=== PATIENT | female | born 1985 | race Caucasian/White ===

== ENCOUNTER 2020-06-24 13:11 | Emergency (ER) | payer BC, SELFPAY ==
[2020-06-24 14:01] VITALS: BP 121/85; PULSE 63; RESP 20; O2SAT 100; BMI 22.8
--- NOTE | 2020-06-24 14:08 | HMH.EDUTC ---
[facility] [place] Disposition Clinical Impression: Migraine headache Qualifiers: Migraine type: unspecified Status migrainosus presence: without status migrainosus Intractability: not intractable Qualified Code(s): G43.909 - Migraine, unspecified, not intractable, without status migrainosus Disposition: Home, Self-Care Condition on Discharge: Good Instructions: Migraine -- Adult, DI for Migraine Additional Instructions: Drink plenty of fluids. Take tylenol or ibuprofen for pain or fever. Take the medications as directed. Follow up with your regular doctor. GO TO THE ER FOR ANY WORSENING SYMPTOMS Prescriptions: Ondansetron [Zofran 4mg ODT] 4 mg PO Q8HP PRN #20 tab.rapdis PRN Reason: Nausea Transmission Status: Received by [id number] SUMAtriptan succinate [Imitrex 25mg Tablet] 25 mg PO DAILYP PRN #30 tab PRN Reason: Headache Transmission Status: Received by [id number] Referrals: Kaz Wick MD [Primary Care Provider] - Forms: Work/School Release Time of Disposition: 14:15 Medical Decision Making - Medical Records Medical records reviewed: No: I reviewed the patient's medical records. - Tim Inquiry Pt receiving controlled substance: No Vital Signs: 06/24/20 14:01 06/24/20 14:23 Temperature 98 F Pulse Rate 63 Pulse Rate [Right Brachial] 63 Respiratory Rate 20 20 Blood Pressure 121/85 Blood Pressure [Left Arm] 121/85 Blood Pressure Mean [Left Arm] 97 Blood Pressure Source [Left Arm] Automatic Cuff Blood Pressure Position [Left Arm] Sitting 02 Sat by Pulse Oximetry 100 Oxygen Delivery Method Room Air [facility] [place] HPI - General Stated complaint: see if ok to return to work Time Seen by Provider: 06/24/20 14:08 Mode of Arrival: Ambulatory Source of Information: Patient Limitations: No Limitations Description of Symptoms (Recalled from Triage Doc. by RN): PATIENT HAD AN OCCULAR MIGRAINE AT WORK ON WEDNESDAY AND WAS SENT HOME. SHE IS NEEDING A NOTE TO RETURN TO WORK. PATIENT DENIES SYMPTOMS AT THIS TIME HEENT Symptoms (Recalled from RN notes): No Resp Symptoms (Recalled from RN notes): No Skin Symptoms (Recalled from RN notes): No MS Symptoms (Recalled from RN notes): No Functional Status (Recalled from RN notes): WNL - History of Present Illness Provider Complaint: She states that on Wednesday (3 days ago) she had a migraine headache and had to go home from work. She needs a release to go back to work. She has a history of migraines. - Related Data Previous Rx's Medication Instructions Recorded Ondansetron [Zofran 4mg ODT] 4 mg PO Q8HP PRN #20 tab.rapdis 06/24/20 SUMAtriptan succinate [Imitrex 25 mg PO DAILYP PRN #30 tab 06/24/20 25mg Tablet] Allergies Allergy/AdvReac Type Severity Reaction Status Date / Time No Known Allergies Allergy Unverified 10/05/17 14:57 - Worker's Comp Is this a Worker's Comp case?: No [facility] History - Hepatitis A Screen Drug use history?: No High risk sexual behaviors?: No History of sexually transmitted infection?: No Currently employed?: No Childcare worker?: No Do you have indoor plumbing?: Yes Do you have electricity?: Yes Attestation statement:: This patient has been screened for Hepatitis A risk factors. I have reviewed the patient's past medical history: Yes Laterality Cases: Bilateral: Tonsillectomy - Social History Alcohol Intake: never Occupational Status: other ROS Obtained: Yes All systems reviewed & no additional complaints - Constitutional Constitutional: Denies chills, Denies fatigue, Denies fever(s) - Eyes Eyes: Denies blurry vision, Denies change in vision, Denies eye discharge - ENT Ears, Nose, Mouth, and Throat: Denies dizziness, Denies otalgia, Denies sore throat - Cardiovascular Cardiovascular: Denies chest pain - Respiratory Respiratory: No chest congestion, No cough Physical Exam - General General appearance: alert, in no apparent distress - Head Head exa
[2020-06-24 14:23] VITALS: BP 121/85; PULSE 63; RESP 20; TEMP 36.6; O2SAT 100
== END 2020-06-24 14:24 | disposition home or self-care (01) ==
PROVIDERS: Emergency Provider Nurse Practitioner Family; PCP Emergency Medicine
DX: Z02.89 Encounter for other administrative examinations (principal); G43.909 Migraine, unspecified, not intractable, without status migrainosus
CPT/HCPCS: 99201

== ENCOUNTER → 2021-01-08 12:51 | Outpatient (CLI) | payer OTHER, SELFPAY | PROVIDERS: PCP Physician Assistant; Visit Provider Nurse Practitioner Family | DX: Z20.822 Contact with and (suspected) exposure to COVID-19 (principal) | CPT/HCPCS: U0003 ==

== ENCOUNTER 2021-06-12 09:30 | Emergency (ER) | payer OTHER, SELFPAY ==
[2021-06-12 10:53] VITALS: BP 125/79; PULSE 77; RESP 18; TEMP 36.8; O2SAT 99; BMI 21.9
--- NOTE | 2021-06-12 11:08 | HMH.EDUTC ---
[facility] [place] Disposition Clinical Impression: Migraine headache Qualifiers: Migraine type: unspecified Status migrainosus presence: without status migrainosus Intractability: not intractable Qualified Code(s): G43.909 - Migraine, unspecified, not intractable, without status migrainosus Disposition: Home, Self-Care Condition on Discharge: Good Instructions: Migraine -- Adult, DI for Migraine Additional Instructions: Go home take one benadryl and lay down and try to sleep off remainder of migraine headache Follow up with your Family Doctor if your migraines continue Straight to ER for worse Migraine headache of your life Return if needed Referrals: Elizabeth Mayes PA [Primary Care Provider] - As needed Forms: Work/School Release Medical Decision Making - Tim Inquiry Pt receiving controlled substance: No Tim was queried for this patient: No Vital Signs: 06/12/21 10:53 Temperature 98.2 F Temperature Source Oral Pulse Rate [Right] 77 Respiratory Rate 18 Blood Pressure [Right Arm] 125/79 Blood Pressure Mean [Right Arm] 94 02 Sat by Pulse Oximetry 99 Oxygen Delivery Method Room Air Orders (Tests/Meds): ED MEDICATIONS Discontinued Medications Generic Name Dose Route Start Last Admin Trade Name Joshua PRN Reason Stop Dose Admin Ketorolac Tromethamine 60 mg 06/12/21 11:16 06/12/21 11:21 Ketorolac 60mg/2ml Vial IM 06/12/21 11:17 60 mg ONCE ONE Administration Ondansetron HCl 4 mg 06/12/21 11:16 06/12/21 11:21 Ondansetron 4mg/2ml Vial IM 06/12/21 11:17 4 mg ONCE ONE Administration Medical Decision Narrative: Patient report that Migraine headache is now almost gone Patient was unable to receive the benadryl due to no taxi driver but state that she will go home take it and lay down to sleep off remainder of headache [facility] [place] HPI - General Stated complaint: HEADACHE Time Seen by Provider: 06/12/21 11:08 Mode of Arrival: Family Vehicle Source of Information: Patient Limitations: No Limitations Description of Symptoms (Recalled from Triage Doc. by RN): Patient c/o a mingraine intermittently since 06/09/21. Patient reports hx of migraines. Patient denies photophobia, unilateral weakness and N/V. HEENT Symptoms (Recalled from RN notes): Yes (MIGRAINE) Resp Symptoms (Recalled from RN notes): No Skin Symptoms (Recalled from RN notes): No MS Symptoms (Recalled from RN notes): No Functional Status (Recalled from RN notes): NA - History of Present Illness Provider Complaint: Patient states that she has a history of migraine headaches State that she started with Migraine on Wednesday and has been trying to get it cleared up and she will get some relief and then it will return State that she has had to come in before and get Toradol and benadryl to help clear it up but today she didnt have taxi driver so she wanted to see if she could get Toradol shot and something for the nausea and she will take the benadryl at home - Related Data Previous Rx's Medication Instructions Recorded SUMAtriptan succinate [Imitrex 25 mg PO DAILYP PRN #30 tab 06/24/20 25mg Tablet] Allergies Allergy/AdvReac Type Severity Reaction Status Date / Time No Known Allergies Allergy Verified 05/22/21 14:59 - Worker's Comp Is this a Worker's Comp case?: No Is this an H Worker's Comp?: No Is this a [place] Worker's Comp?: No H History - Hepatitis A Screen Drug use history?: No High risk sexual behaviors?: No History of sexually transmitted infection?: No Currently employed?: No Childcare worker?: No Do you have indoor plumbing?: Yes Do you have electricity?: Yes Attestation statement:: This patient has been screened for Hepatitis A risk factors. I have reviewed the patient's past medical history: Yes Medical History: Reports:: Migraine Laterality Cases: Bilateral: Tonsillectomy Other Surgeries: Yes: , Tubal Ligation Amputation: No Fractures: No - Social History Smoking Status: Current ev
[2021-06-12 11:40] VITALS: BP 122/75; PULSE 78; RESP 18; TEMP 36.9; O2SAT 98
== END 2021-06-12 11:42 | disposition home or self-care (01) ==
PROVIDERS: Emergency Provider Nurse Practitioner; PCP Physician Assistant
DX: G43.909 Migraine, unspecified, not intractable, without status migrainosus (principal)
CPT/HCPCS: 99202; G0463; J2405

== ENCOUNTER → 2021-07-17 12:06 | Outpatient (CLI) | payer OTHER, SELFPAY | PROVIDERS: PCP Emergency Medicine; Visit Provider Nurse Practitioner | DX: Z20.822 Contact with and (suspected) exposure to COVID-19 (principal) | CPT/HCPCS: C9803; U0003; U0005 ==

== ENCOUNTER → 2021-11-11 17:35 | Outpatient (CLI) | payer OTHER, SELFPAY | PROVIDERS: Visit Provider Nurse Practitioner | DX: U07.1 COVID-19 (principal) | CPT/HCPCS: C9803; U0003; U0005 ==

== ENCOUNTER 2022-02-14 20:15 | Emergency (ER) | payer OTHER, SELFPAY ==
--- NOTE | 2022-02-14 20:20 | XR_ITS ---
PROCEDURE INFORMATION: Exam: XR Right Wrist Exam date and time: 02/14/2022 8:17 PM Age: 36 years old Clinical indication: Wrist; Right; Patient HX: Pain after a fall skating TECHNIQUE: Imaging protocol: XR Right wrist. Views: 3 or more views. COMPARISON: No relevant prior studies available. FINDINGS: Bones/joints: Mildly displaced and mildly posteriorly angulated distal radial metaphyseal fracture. There may be intra-articular component in the radiocarpal joint. Subtle ulnar styloid process irregularity could be a nondisplaced avulsion fracture. Soft tissues: Normal. IMPRESSION: 1. Mildly displaced and mildly posteriorly angulated distal radial metaphyseal fracture. There may be intra-articular component in the radiocarpal joint. 2. Subtle ulnar styloid process irregularity could be a nondisplaced avulsion fracture.
[2022-02-14 20:25] VITALS: BP 131/87; PULSE 92; RESP 18; TEMP 37.1; O2SAT 100; BMI 21.9
--- NOTE | 2022-02-14 20:37 | PC.NURSE ---
ICE PACK PLACED ON WRIST
--- NOTE | 2022-02-14 20:43 | HMH.EDUTC ---
[facility] [place] Impression: Distal radial fracture Qualifiers: Encounter type: initial encounter Fracture type: closed Fracture morphology: unspecified fracture morphology Laterality: right Qualified Code(s): S52.501A - Unspecified fracture of the lower end of right radius, initial encounter for closed fracture Disposition: Home, Self-Care Condition on Discharge: Good Instructions: DI for Wrist Fracture, Wrist Fracture, Ketorolac Additional Instructions: *RICE, Rest the extremity, Ice 15-20 minutes 3-4 times daily, Compress- wear the dalton wrap as discussed as much as possible to help reduce swelling and pain, Elevate the extremity when at rest *Orthoglass splint is for support and help control swelling, Be sure that is not to tight but not to loose either *Elevate when resting *Take medication as prescribed If need something more can take Tylenol in between doses to help Immediately follow up with your family doctor for new or worsening of symptoms, or no noticeable improvement over the next 3-5 days Call Orthopedic office on Wednesday for appointment with Dr Paulino Return if needed Straight to ER if any life threatening symptoms Prescriptions: Ketorolac Tromethamine [Toradol 10mg tablet] 10 mg PO Q6HP PRN #20 tab MDD 40mg/day PRN Reason: Moderate Pain Transmission Status: Pending to [id number] Referrals: Kaz Wick MD [Primary Care Provider] - As needed Parker Paulino MD [Staff Physician] - As needed (Call office on Wednesday for appointment) Forms: Work/School Release Time of Disposition: 21:05 Medical Decision Making - Tim Inquiry Pt receiving controlled substance: No Tim was queried for this patient: No Vital Signs: 02/14/22 20:25 02/14/22 20:49 Temperature 98.7 F 98.7 F Temperature Source Oral Pulse Rate 92 H Pulse Rate [Right Brachial] 92 H Respiratory Rate 18 18 Blood Pressure 131/87 Blood Pressure [Right Arm] 131/87 Blood Pressure Mean [Right Arm] 101 Blood Pressure Source [Right Arm] Automatic Cuff Blood Pressure Position [Right Arm] Sitting 02 Sat by Pulse Oximetry 100 Oxygen Delivery Method Room Air Orders (Tests/Meds): ED MEDICATIONS Discontinued Medications Generic Name Dose Route Start Last Admin Trade Name Freq PRN Reason Stop Dose Admin Ketorolac Tromethamine 60 mg 02/14/22 20:44 02/14/22 20:49 Ketorolac 60mg/2ml Vial IM 02/14/22 20:45 60 mg ONCE ONE Administration ORDERS Category Date Time Status XR wrist RT min 3V Stat Exams 02/14/22 20:20 Taken - Radiology Data #1 Image(s): Wrist Image Reviewed: Yes I reviewed the patient's radiology image distal radial fracture - Physician Consults Physician Consulted: Dr Paulino Time: 20:45 Reason -: Orthopedic Eval/Care Comment/Response: Spoke with Dr Paulino and he viewed the xray and agreed Advised place in short arm splint, rice and call the office on Wednesday for appointment [facility] [place] - General Stated complaint: AO fall 1999 Right wrist pain Time Seen by Provider: 02/14/22 20:44 Mode of Arrival: Ambulatory Source of Information: Patient Limitations: No Limitations Description of Symptoms (Recalled from Triage Doc. 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 HEENT Symptoms (Recalled from RN notes): No Resp Symptoms (Recalled from RN notes): No Skin Symptoms (Recalled from RN notes): No MS Symptoms (Recalled from RN notes): Yes Functional Status (Recalled from RN notes): WNL - History of Present Illness Provider Complaint: Patient state that she was skating and her child went to fall and she tried to catch them and she fell and stuck her hand out to catch herself and she fell and felt a pop State that she looked down and noticed her wrist and had family bring her in - Related Data Previous Rx's Medication Instructions Recorded SUMAtriptan succinate [Imitrex 25 mg PO DAILYP PRN #30 tab 06/24/20 25mg Tablet] Ketorol
[2022-02-14 20:49] VITALS: BP 131/87; PULSE 92; RESP 18; TEMP 37.1; O2SAT 100
== END 2022-02-14 21:09 | disposition home or self-care (01) ==
PROVIDERS: Emergency Provider Nurse Practitioner; PCP Emergency Medicine
DX: S52.501A Unspecified fracture of the lower end of right radius, initial encounter for closed fracture (principal); W18.30XA Fall on same level, unspecified, initial encounter; Y93.51 Activity, roller skating (inline) and skateboarding; Z72.0 Tobacco use
CPT/HCPCS: 73110; 96372; 99283

== ENCOUNTER → 2022-02-16 13:45 | Outpatient (CLI) | payer OTHER, SELFPAY ==
--- NOTE | 2022-02-16 13:51 | XR_ITS ---
FINAL REPORT CLINICAL HISTORY: rt elbow pain FINDINGS: RIGHT ELBOW 3 views were obtained. There is no acute fracture or dislocation. There is no joint effusion. The joint spaces are intact. There is no soft tissue abnormality. IMPRESSION: No acute process. Reviewed, Interpreted and Dictated by Sen Fenton III, MD Transcribed by Hang Muñoz Authenticated by Sen Fenton III, MD on 02/16/2022 02:41:41 PM [facility]
--- NOTE | 2022-02-16 15:30 | XR_ITS ---
FINAL REPORT CLINICAL HISTORY: pre op, no chest symptoms at this time. Unable to removed nipple piercings due to forearm fx. COMPARISON: April 29, 2016 FINDINGS: Two views of the chest were obtained. The heart size and pulmonary vascularity are within normal limits. The mediastinum is normal. No acute pulmonary abnormality is identified. There is no pneumothorax. The bony thorax is intact. IMPRESSION: No active cardiopulmonary disease. Reviewed, Interpreted and Dictated by Sen Fenton III, MD Transcribed by Hang Muñoz Authenticated by Sen Fenton III, MD on 02/16/2022 05:00:55 PM [facility]
[2022-02-16 16:58] LABS: Urine Pregnancy, HCG Qual. Negative (Negative)
[2022-02-16 17:19] LABS: Alanine Aminotransferase 22 U/L (12-78); Albumin/Globulin Ratio 1.8 (1.1-1.8); Alkaline Phosphatase 67 U/L (38-126); Anion Gap 10.9 mEq/L (5-15); Aspartate Amino Transferase 30 U/L (14-36); Bilirubin,Total 0.5 mg/dl (0.2-1.3); Blood Urea Nitrogen 13 mg/dl (7-17); Carbon Dioxide 27 mmol/L (22.0-30.0); Chloride 102 mmol/L (98-107); Estimated Glomerular Filt Rate 96 ml/min (>60); GFR (African American) 116 ML/MIN (>60); Globulin 2.2 g/dL (1.3-3.2); Glucose 74 mg/dl (74-100); Potassium 3.9 mmoL/L (3.5-5.1); Sodium 136 mmol/L (136-145); Total Protein,Serum 6.2 g/dl (6.3-8.2)
[2022-02-16 18:04] LABS: Basophils # 0.1 K/mm3 (0-0.2); Basophils % 0.8 % (0.1-2.0); Eosinophils # 0.1 K/mm3 (0.0-0.4); Eosinophils % 1.2 % (0.1-12.0); Hematocrit 38.7 % (37.0-47.0); Hemoglobin 13.2 g/dL (12.2-16.2); Lymphocytes % 30.3 % (10-50); Mean Corpuscular HGB Conc 34.1 g/dL (31.8-35.4); Mean Corpuscular Hemoglobin 31.8 pg (27.0-31.2); Mean Corpuscular Volume 93.2 fl (81-99); Mean Platelet Volume 9.2 fl (7.4-10.4); Monocytes # 0.6 K/mm3 (0.1-1.0); Monocytes % 5.8 % (1.7-9.3); Neutrophils # 6.1 K/mm3 (1.8-7.8); Neutrophils % 61.9 % (37.0-80.0); Platelet Count 405 K/mm3 (142-424); Red Blood Count 4.15 M/mm3 (4.20-5.40); Red Cell Distribution Width 12.6 % (11.5-17.5); White Blood Count 9.9 K/mm3 (4.8-10.8)
== END ==
PROVIDERS: PCP Emergency Medicine; Visit Provider Orthopaedic Surgery
DX: Z01.812 Encounter for preprocedural laboratory examination (principal); Z11.52 Encounter for screening for COVID-19; M25.521 Pain in right elbow; S52.501A Unspecified fracture of the lower end of right radius, initial encounter for closed fracture
CPT/HCPCS: 71046; 73080; 80053; 81025; 85025; C9803; U0003; U0005

== ENCOUNTER 2022-02-18 06:07 | Day surgery (SDC) | payer OTHER, SELFPAY ==
[2022-02-17 11:25] VITALS: BMI 21.9
[2022-02-18] VITALS (12 sets, daily range): BP systolic 110–125; BP diastolic 68–79; PULSE 70–117; RESP 13–18; TEMP 36.7–43; O2SAT 95–99
--- NOTE | 2022-02-18 07:08 | P.PN_ITS ---
[facility] Anesthesia Checklist - Structural Data Admitted From: Home Planned Operative Procedure/s: orif r radius Consent for Planned Operative Procedure(s) Verified: Yes - Additional verifications Anesthesia Reactions: No Hx Blood Transfusions: No Blood Transfusion Reaction: No - Airway Assessment C-Spine Mobility Assessed: Yes TMJ Mobility Assessed: Yes Dentition: Good Dentition - Neurological Assessment Level of Consciousness: Awake, Alert, Appropriate - Anesthesia Plan Anesthesia Risk discussed: Yes Anesthesia Plan: Verified ASA Class: II Anesthesia Type: General [facility] History I have reviewed the patient's past medical history: Yes Medical History: Reports:: Migraine Denies:: Cancer, Diabetes Mellitus Type 1, Diabetes Mellitus Type 2, Internal Pacemaker, MRSA, Seizures *Have you ever received a pneumonia vaccine?: No *Have you received a flu vaccine this season?: No Other Medical History: Denies: Blood Transfusion Reaction Anesthesia experience/problems:: none Laterality Cases: Bilateral: Tonsillectomy Other Surgeries: Yes: , Tubal Ligation. No: Pacemaker Amputation: No Fractures: No - *Social History Last grade of school completed: Some college Smoking Status: Current every day smoker Tobacco Type: e-cigarettes # Packs/Day (cigarettes): 1 Alcohol Intake: current Alcohol Intake Frequency:: holidays/special occasions only Substance Use Type: denies use *Occupational Status:: employed Housing: house Household Members: family, children *Travel in the last 8 weeks: None Family Hx:: Non-contributory, Cancer, Diabetes, Heart Attack, Hypertension, Asthma
--- NOTE | 2022-02-18 09:14 | XR_ITS ---
FINAL REPORT CLINICAL HISTORY: ORIF RT WRIST. DAVID .37 fluoro time COMPARISON: Plain film dated February 14, 2022 FINDINGS: Fluoroscopic guidance was provided for the operating services. Two spot films were provided. 37 seconds of fluoroscopy time was utilized. There has been interval ORIF of the distal radius with screw plate and multiple screws. IMPRESSION: 37 seconds of fluoroscopy time. Reviewed, Interpreted and Dictated by Sen Fenton III, MD Transcribed by Hang Muñoz Authenticated by Sen eFnton III, MD on 02/18/2022 10:34:17 AM [facility]
--- NOTE | 2022-02-18 09:57 | HMH.ANESI ---
[facility] Anesthesia Record Part I Intake, IV Amount: 700 Estimated blood loss (mL): 10 Urine output (mL): 0 Blood Products used (#): none Blood Pressure: 125/77 SaO2: 95 Pulse Rate: 117 Respiratory Rate: 13 Temperature: 98.9 F Patient is:: Drowsy Stable to PACU at:: 09:56
--- NOTE | 2022-02-18 10:34 | HMH.OPNOTE ---
Date of procedure: 02/18/22 Pre-op Diagnosis:: Closed, displaced distal radius fracture, right wrist Post-op Diagnosis:: Same Procedure performed:: Open reduction and internal fixation, right distal radius fracture Surgeon:: Parker Paulino MD Boring Mill Set Up Operator(s):: Abigail Almazan PA-C SPOOLING SUPERVISOR:: Other (Heriberto Mcdonough) Anesthesia: LMA Estimated blood loss (mL): 5 Clinical Note:: Patient is a 36-year-old right-hand dominant female who sustained a closed, displaced fracture of the right distal radius following a mechanical fall over the weekend. Evaluation including x-rays of the wrist showed a closed, displaced fracture of the distal radius. There was apex volar angulation at the fracture site with shortening of the radius, loss of radial inclination and dorsal tilt of the distal fracture fragment. Following evaluation in the office and discussion with the patient about the management options, including both nonsurgical and surgical, patient elected to proceed with surgical remediation. Please refer to my office note for full details. Operative findings:: Displaced, unstable fracture of the right distal radius as noted on the preoperative x-rays. Bone quality is good. Operative note:: After appropriate workup, the patient is brought to the hospital for surgery. On the day of surgery, I met the patient in the preoperative area and again discussed the details of the procedure, risks, benefits, alternatives, and the expected outcomes. The complications discussed include but are not limited to infection, bleeding, injury to nerves, tendons and blood vessels, incisional scar (cosmesis), DVT/PE, malunion, nonunion/delayed union, loss of position, re-fracture, wrist/finger stiffness, CRPS (complex regional pain syndrome- pain, sensory and temperature changes, swelling and stiffness), painful/prominent hardware, loss of fixation/hardware failure, incomplete relief of pain, incomplete return of function, posttraumatic arthritis and likely need for further surgery in future and also the risks of anesthesia including heart attack, stroke, and . I have also explained how additional surgery may be required if there are any complications or the fracture fails to heal. We have also discussed the postoperative pain management, recovery and rehabilitation, immobilization required, the likely need for physical therapy, the possibility of stiffness, chronic pain and we've also discussed the option of nonsurgical treatment. Patient expressed a full understanding and wished to proceed with surgery as planned. The operative site/side was marked and initialed by me. Patient understood the risks, agreed to proceed with surgery and no guarantees or assurances were given or implied. Patient was brought to the operating room and placed supine on the table. The right upper extremity was placed over an arm table. All the bony prominences were well padded. A general anesthesia was administered by the land conservation specialist. A well-padded tourniquet cuff was applied over the upper arm. The right upper extremity was prepped and draped in the usual sterile fashion. A preprocedure timeout was performed as per hospital protocol. Administration of prophylactic IV antibiotics (2 g of IV Ancef) was confirmed prior to starting the procedure. The skin incision was marked over the distal forearm anteriorly for the extended FCR volar approach to distal radius. Limb was exsanguinated with Esmarch bandage and tourniquet was inflated to 250 mmHg. Please see the nursing notes for the total tourniquet time. Skin incision was made over the distal radius for an extended FCR anterior approach. The incision was deepened through the subcutaneous tissue and the FCR tendon was identified. The FCR sheath was opened, and the tendon retracted medially. The deeper dissection was carried through the bed of the FCR tendon to expose the FPL muscle and tendon which were retracted medially. The pronator quadratus was released in an L-shap
--- NOTE | 2022-02-19 07:46 | P.PN_ITS ---
[facility] Anesthesia Record Part II Discharge Time: 10:46 Destination: Home PACU nurse assessment reviewed?: Yes Patient Condition:: Good Anesthesia Complications:: None Swallowing reflex intact?: Yes Cyanosis?: No Blood Pressure: 117/78 Pulse Rate: 99 Temperature: 98.9 F Mental Status: Alert & Oriented Pain level:: 0 Nausea and/or vomitting:: None Intake, IV Amount: 0
[2022-02-19 07:47] VITALS: BP 117/78; PULSE 99; TEMP 37.2
== END 2022-02-18 11:17 | disposition home or self-care (01) ==
LOC: OR 06:08
PROVIDERS: PCP Emergency Medicine; Visit Provider Orthopaedic Surgery
PROC: (CPT 25608; principal; 2022-02-18 07:30)
DX: S52.571A Other intraarticular fracture of lower end of right radius, initial encounter for closed fracture (principal); W01.0XXA Fall on same level from slipping, tripping and stumbling without subsequent striking against object, initial encounter; Y93.51 Activity, roller skating (inline) and skateboarding
CPT/HCPCS: 25608; 73100; 76000; 96374; C1713; C1769; C1776; J2405

== ENCOUNTER → 2022-02-25 10:05 | Outpatient (CLI) | payer BC, SELFPAY ==
--- NOTE | 2022-02-25 10:12 | XR_ITS ---
FINAL REPORT CLINICAL HISTORY: ORIF rt wrist COMPARISON: February 14, 2022 FINDINGS: 3 views of the right wrist were obtained. Overlying cast material obscures detail. There has been interval postoperative change with sideplate and multiple screws. There is a fracture of the tip of the ulnar styloid process. IMPRESSION: Interval postoperative changes of ORIF. Fracture of the tip of the ulnar styloid process. Reviewed, Interpreted and Dictated by Sen Fenton III, MD Transcribed by Hang Muñoz Authenticated by Sen Fenton III, MD on 02/25/2022 11:15:48 AM [facility]
== END ==
PROVIDERS: PCP Emergency Medicine; Visit Provider Orthopaedic Surgery
DX: S52.501A Unspecified fracture of the lower end of right radius, initial encounter for closed fracture (principal)
CPT/HCPCS: 73110

== ENCOUNTER → 2022-03-17 09:13 | Outpatient (CLI) | payer BC, SELFPAY ==
--- NOTE | 2022-03-17 09:17 | XR_ITS ---
FINAL REPORT CLINICAL HISTORY: ORIF rt wrist, cast removal COMPARISON: February 25, 2022 FINDINGS: 3 views of the right wrist were obtained. There has been interval removal of a cast. There is a distal radius fracture with ORIF. There is a presumed fracture tip of of the ulnar styloid process. There are mild degenerative changes. IMPRESSION: Fractures as above with changes of ORIF. Reviewed, Interpreted and Dictated by Sen Fenton III, MD Transcribed by Hang Muñoz Authenticated by Sen Fenton III, MD on 03/17/2022 10:37:53 AM [facility]
== END ==
PROVIDERS: PCP Emergency Medicine; Visit Provider Orthopaedic Surgery
DX: S52.501A Unspecified fracture of the lower end of right radius, initial encounter for closed fracture (principal)
CPT/HCPCS: 73110

== ENCOUNTER 2022-03-17 10:27 | Outpatient (RCR) | payer BC, SELFPAY | END 2022-03-17 11:30 | disposition home or self-care (01) | LOC: OT 10:27 | PROVIDERS: Visit Provider Orthopaedic Surgery | DX: S52.501D Unspecified fracture of the lower end of right radius, subsequent encounter for closed fracture with routine healing (principal) | CPT/HCPCS: 97760 ==

== ENCOUNTER → 2022-04-07 08:52 | Outpatient (CLI) | payer BC, SELFPAY ==
--- NOTE | 2022-04-07 08:54 | XR_ITS ---
FINAL REPORT CLINICAL HISTORY: s/p ORIF 02/20/2022 COMPARISON: March 17, 2022 FINDINGS: RIGHT WRIST Three views were obtained. Again noted are fractures of the distal radius and tip of the ulnar-styloid process. Postoperative changes are seen from ORIF with screw plate and screws at the distal radius. The bony alignment is stable. There is evidence of interval healing of the distal radial fracture fragments. There is no new bony abnormality seen. The visualized joint spaces are normally aligned. The soft tissues are unremarkable. IMPRESSION: Interval healing of distal radial fracture status post ORIF with no new acute bony abnormality. Reviewed, Interpreted and Dictated by Sen Fenton III, MD Transcribed by Maine Spencer Authenticated and [facility]
--- NOTE | 2022-04-07 11:11 | XR_ITS ---
FINAL REPORT CLINICAL HISTORY: shoulder pain FINDINGS: RIGHT SHOULDER Three views demonstrate no acute fracture or dislocation. The joint spaces appear normal. The visualized bony structures are well aligned. No soft tissue abnormality is seen. IMPRESSION: No acute process. Reviewed, Interpreted and Dictated by Sen Fenton III, MD Transcribed by Perlita Parikh Authenticated and [facility]
== END ==
PROVIDERS: PCP Emergency Medicine; Visit Provider Orthopaedic Surgery
DX: Z09 Encounter for follow-up examination after completed treatment for conditions other than malignant neoplasm (principal); M25.511 Pain in right shoulder; S52.501D Unspecified fracture of the lower end of right radius, subsequent encounter for closed fracture with routine healing
CPT/HCPCS: 73030; 73110

== ENCOUNTER 2022-04-21 15:00 | Outpatient (RCR) | payer BC, SELFPAY ==
--- NOTE | 2022-03-23 14:43 | HMH.OTOPEV ---
OT Inpatient Evaluation Rehab OT Outpatient Eval Start: 03/23/22 14:30 Freq: Status: Active Protocol: Document 03/23/22 14:31 RMJANELL (Rec: 03/23/22 14:43 [id number] Electronically Signed By Jannet Staples OT 03/23/22 14:31 Outpatient Therapy Subjective History Subjective History Pt is a 36 year old, right hand dominant female who reports to therapy for initial evaluation to right wrist. Pt reports on 02/11/22 she was skating with her children when she fell. She extended right arm out to catch herself and fractured her wrist. Pt is currently s/p R wrist ORIF on 02/18/22. 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 She is still not working at this time. Pt demonstrates with decreased AROM and strength at right wrist. She has full range of motion in fingers and is able to make a full fist. Therapist does not observe any swelling in fingers or wrist area. Incision on anterior aspect of forearm appears to be healed well. Pt will continue to be seen twice a week in order to address right wrist deficits. Chief Complaint Pain,Stiff,Weakness,Decreased Procurement Assistant Strength Symptom Type Ache,Throb,Dull,Tingling Symptoms Relieved By Rest/Positioning Symptoms Aggravated By Physical Activity,Lifting Prior Functional Limitations None Current Functional Limitations Reaching,Lifting,Housework, Dressing,Sleeping,Recreation Activity Symptom Description Intermittent,Activity Dependent Level of pain today (0-10) 0 Pain scale - at its best (0-10) 0 Pain scale - at its worst (0-10) 5 Wrist/Hand Eval Wrist Range of Motion Right Wrist Extension Active Range of Motion ( 18 degrees degrees) Wrist Flexion Active Range of Motion ( 30 degrees degrees) Wrist Radial Deviation Active Range of 20 degrees Motion (degrees) Wrist Ulnar Deviation Active Range of 12 degrees Motion (degrees) Forearm Supination Active Range of
--- NOTE | 2022-04-21 15:17 | HMH.RHREAS ---
Rehab Reassessment Rehab OP Re-assessment Start: 04/21/22 14:46 Freq: Status: Active Protocol: Document 04/21/22 14:46 EMBER (Rec: 04/21/22 15:16 RMRICKHALL [id number]) Electronically Signed By Jannet Staples OT 04/21/22 14:46 Rehab Re-assessment Subjective Subjective It is fine honestly. Objective Objective Notes Pt continues to be seen twice a week in order to address right wrist deficits. Each session, pt engages in strengthening, AROM, and AAROM exercises at right wrist. Pt also receives PROM manual stretching to right wrist in all planes. Modaliteis are provided in order to decrease pain/inflammation. Assessment Progress Assessment Progressing as Expected Assessment Notes At this time, pt reports she has 0/10 pain during all activities. She also reports she has been released by her doctor. Pt explains she is able to complete all desired ADLs and IADLs. Pt's AROM and strength are all within normal limits. Current AROM: Ext: 73 degrees Flex: [address]: 34 degrees UD: 38 degrees Sup: 90 degrees Pro: 90 degrees Patient goals met ST-5 LT-5 Goals Not Met n/a Revised Goals All goals have been met Plan Plan At this time, pt will be discharged from OT because all goals have been met and her wrist AROM and Strength is within normal limits. Time and Billing Re-Eval Time 10 Re-Eval Billing Units 1 PHYSICIAN CERTIFICATION: I certify the specified therapy services for Toya Healy are required, authorized, and reviewed every 30 days.
== END 2022-04-21 15:05 | disposition home or self-care (01) ==
LOC: OT 15:00
PROVIDERS: PCP Emergency Medicine; Visit Provider Orthopaedic Surgery
DX: S52.501D Unspecified fracture of the lower end of right radius, subsequent encounter for closed fracture with routine healing (principal)
CPT/HCPCS: 97010; 97014; 97035; 97110; 97140; 97164; 97166; G0283

== ENCOUNTER 2022-04-23 11:00 | Outpatient (RCR) | payer BC, SELFPAY ==
--- NOTE | 2022-04-21 17:06 | HMH.PTOPEV ---
PT Outpatient Evaluation Rehab PT Outpatient Evaluation Start: 04/21/22 15:54 Freq: Status: Active Protocol: Document 04/21/22 15:54 AMBER (Rec: 04/21/22 17:05 AMBER [id number]) Electronically Signed By Tracey Miranda, IMAN 04/21/22 15:54 Outpatient Therapy Subjective History Subjective History Pt is a 36 y/o female that reports onset of right neck/ shoulder blade pain after falling onto her right hand and breaking her wrist at the end of January of this year. Pt reports she noticed pain on the inside of her right shoulder blade after being in a sling and cast. Pt reports she also had onset of left lower quadrant numbness at the same time but denies paresthesia into the right arm . Pt denies having imaging of the neck/thoracic spine but states she had an xray at [facility] of her right shoulder without significant findings. Pt reports she has been previously diagnosed with hemiplegic migraines that effect her vision/speech which have increased in frequency since her fall. Pt states she takes medication for this which helps some and knows when she will have an attack based on her nose tingling as the initial symptom. Pt reports she gets migraines every other day now compared to monthly before her injury. Pt reports difficulty looking over her left shoulder, driving and sleeping due to pain/stiffness. Pt states she is unable to find a comfortable sleeping position and gets very little sleep due to pain. Pt reports she has tried rolling the painful spot with a foam roller/tennis ball and stretching the shoulder without relief. Pt
== END 2022-04-23 11:05 | disposition home or self-care (01) ==
LOC: PT 11:00
PROVIDERS: PCP Emergency Medicine; Visit Provider Orthopaedic Surgery
DX: M54.2 Cervicalgia (principal); M25.511 Pain in right shoulder; M54.6 Pain in thoracic spine; S52.501D Unspecified fracture of the lower end of right radius, subsequent encounter for closed fracture with routine healing
CPT/HCPCS: 97110; 97140; 97163

== ENCOUNTER → 2022-05-05 09:42 | Outpatient (CLI) | payer BC, SELFPAY ==
--- NOTE | 2022-05-05 09:46 | XR_ITS ---
FINAL REPORT CLINICAL HISTORY: s/p ORIF rt wrist COMPARISON: 04/07/2022 FINDINGS: RIGHT WRIST Three views of the right wrist were obtained. There are postoperative changes the distal radius with a screw plate and multiple screws present. Bony alignment is stable. A fracture of the distal radius is again noted. Calcification distal to the ulna is again noted and may represent chronic fracture. IMPRESSION: Postoperative changes as above, similar to the prior exam. Reviewed, Interpreted and Dictated by Sen Fenton III, MD Transcribed by Perlita Parikh Authenticated and [facility]
== END ==
PROVIDERS: PCP Emergency Medicine; Visit Provider Orthopaedic Surgery
DX: S52.501A Unspecified fracture of the lower end of right radius, initial encounter for closed fracture (principal)
CPT/HCPCS: 73110